=== PATIENT | female | born 1945 | race Caucasian/White ===

== ENCOUNTER 2020-10-11 21:24 | Emergency (ER) | payer OTHER, SELFPAY ==
[2020-10-11 21:51] VITALS: BP 124/59; PULSE 71; RESP 14; TEMP 36.6; O2SAT 99; BMI 22.3
[2020-10-11 23:24] LABS: COVID19 -Nasal RAPID Negative (Negative)
[2020-10-12 00:53] VITALS: BP 125/65; PULSE 69; RESP 17; TEMP 36.9; O2SAT 98
--- NOTE | 2020-10-12 02:06 | ED.NAVMDI ---
HPI - Nausea/Vomiting/Diarrhea General Chief complaint: Nausea/Vomiting/Diarrhea Stated complaint: FEVER THROWING UP THINKS COVID COUGH Time Seen by Provider: 10/12/20 00:47 Source: patient Mode of arrival: Ambulatory Limitations: no limitations History of Present Illness HPI Narrative: Completely healthy 74-year-old woman with 48 hours of nausea vomiting and diarrhea. Her had similar symptoms 5 days ago and his resolved completely within 72 hours. She is presenting requesting COVID testing, she is fully vaccinated. She notes that she continues to be nauseated however has not had any vomiting or diarrhea for the last 5-6 hours. Denies fevers but notes just prior to vomiting she will become slightly diaphoretic. No cough, palpitations, skin rashes or lower extremity edema Related Data Allergies Allergy/AdvReac Type Severity Reaction Status Date / Time No Known Drug Allergies Allergy Verified 10/11/20 21:51 Review of Systems Review of Systems Narrative: Remainder of complete review of systems is otherwise unremarkable except for that included in the HPI. Patient History Social History Smoking Status: Unknown if ever smoked Smoking Status: Unknown if ever smoked alcohol intake frequency: holidays/special occasions only Substance Use Type: does not use Exam Narrative Exam Narrative: General: Healthy appearing, in no acute distress. Able to give a complete and coherent history. Well-nourished well-developed HEENT: Moist mucous membranes, normal sclera with reactive pupils, Respiratory: Lungs are clear to auscultation, no wheezing no rales no rhonchi. Full and symmetrical air movement Cardiac: Regular rate and rhythm no murmurs no bruits Abdomen: Soft, nontender, hyperactive bowel tones, no flank pain Skin: Warm and dry, no rashes Neurologic: Grossly neurologically intact with no obvious asymmetries or abnormalities Extremities: No trauma, well perfused Psych: Cooperative, appropriate insight and affect Initial Vital Signs Initial Vital Signs: Vital Signs Temperature 97.9 F 10/11/20 21:51 Pulse Rate 71 10/11/20 21:51 Respiratory Rate 14 10/11/20 21:51 Blood Pressure 124/59 L 10/11/20 21:51 Pulse Oximetry 99 10/11/20 21:51 Course Orders Ordered: Discontinued Medications Ondansetron HCl (Ondansetron 4 Mg Odt Prepack) 1 bottle MISC SEEINSTR ONE Stop: 10/12/20 02:22 Last Admin: 10/12/20 02:28 Dose: 1 bottle Documented by: NEEMA Vital Signs Vital signs: Vital Signs - 8 hr 10/12/20 00:53 10/12/20 02:31 Temperature 98.4 F Pulse Rate 69 81 Respiratory Rate 17 20 Blood Pressure 125/65 106/56 L Pulse Oximetry 98 97 MDM - Nausea/Vomiting/Diarrhea Lab Data Labs: Lab Results 10/11/20 Range/Units 10:54 SARS-CoV-2 (PCR) Negative (Negative) MDM Narrative Medical decision making narrative: Otherwise healthy 74-year-old woman presents to make sure that the nausea vomiting diarrhea she is experiencing is not due to COVID. COVID test is negative. Reassured her regarding this however I suspect she does have a mild viral gastroenteritis as her had symptoms preceding her is by approximately 48 hours. He has recovered completely. I fully expect her to do the same. There is no evidence of dehydration, orthostasis, abdominal pain suggesting diverticulitis, appendicitis or bowel obstruction. She is safe for home discharge Discharge Plan Departure Patient Disposition: Home Clinical Impression: Vomiting and diarrhea Instructions: DI for Viral Gastroenteritis -- Adult Activity Restrictions/Additional Instructions: Thank you for coming in today I suspect that you do have a viral gastroenteritis given the fact that you seem to of acquired it from your . Using the Zofran every 6 hours can be helpful in controlling the vomiting so that you can keep some fluid in. Your COVID test was negative I hope you improved quickly
[2020-10-12] MEDS: ONDANSETRON 4 MG ODT PREPACK 1 BOTTLE MISC (02:28)
[2020-10-12 02:31] VITALS: BP 106/56; PULSE 81; RESP 20; O2SAT 97
== END 2020-10-12 02:34 | disposition home or self-care (01) ==
PROVIDERS: Emergency Provider Emergency Medicine
DX: R19.7 Diarrhea, unspecified (principal); R11.10 Vomiting, unspecified; Z20.822 Contact with and (suspected) exposure to COVID-19
CPT/HCPCS: 87635; 99281; 99282; C9803

== ENCOUNTER → 2022-08-14 08:45 | Outpatient (CLI) | payer OTHER, SELFPAY ==
[2022-08-14 11:06] LABS: Influenza A - CEPHEID Flu A POSITIVE (NEGATIVE); Influenza B - CEPHEID Flu B NEGATIVE (NEGATIVE); Respiratory Syncytial Virus Negative (Negative)
[2022-08-14 11:19] LABS: COVID-19 CEPHEID 4-PLEX PCR Negative (Negative)
== END ==
PROVIDERS: Visit Provider Physician Assistant
DX: R05.9 Cough, unspecified (principal); R53.83 Other fatigue
CPT/HCPCS: 0241U